=== PATIENT | male | born 1985 | race African-American/Black ===

== ENCOUNTER 2023-05-18 09:41 | Outpatient (CLI) | payer OTHER ==
--- NOTE | 2023-05-18 10:16 | Sleep Patient Instructions ---
Sleep Center Visit Summary - Patient Visit Information Reason for Visit: Initial consult for evaluation of sleep disordered breathing and other sleep issues. - Patient Instructions Instructions Attached: Sleep Study Home Monitor Additional Instructions: You will be completing a sleep study, either an in-lab polysomnography (PSG) or home sleep study (HST). You will follow-up in the sleep care office after the sleep study is completed to hear the results and talk about therapy, if needed. You will be called by our office staff to schedule this appointment, but you may contact us with any questions. - Clinic Information Contact: [facility] [address] [place] [address] [email or web address] T: [phone]
--- NOTE | 2023-05-18 10:22 | SLEEP CARE CONSULTATION ---
Information from patient questionnaire entered by Bianca Santacruz. I have reviewed and concur with the information entered by Bianca Santacruz. This document represents the service I personally performed and the decisions made by me, Alma Ortega ARNP. History of Present Illness Service Date and Time: 05/18/2023 0941 Reason for Visit: New patient Chief Complaint: reports: Snoring, Observed pauses in breathing, Fatigue, Frequent awakenings at night Date of Onset: FOR YRS Usual bedtime: 2129 -june not fall asleep until midnight Time it takes to fall asleep: 60MINS+ Snores at night: Yes Observed to quit breathing while asleep: Yes Sleeps alone due to snoring: No Number of times waking at night: 3-4 Reasons for waking at night: reports: Choking, Snoring, Bathroom, Other (COUGHING (feels like "something is stuck in throat" and is very dry)). denies: Gasping for air Toss, Turn, or Twitch while sleeping: Yes Recalls having dreams: No Usually gets out of bed at: 0530 Feels refreshed in the morning: No Morning headache: Yes (5 days a week; can subside in about an hour but sometimes later in day) Sleepy or fatigued during the day: Yes (few unintentional naps for about 20 mins, watching TV) Ever fallen asleep while driving: No Takes day naps: No Dreams during day naps: No Prior sleep studies: No Additional HPI information: I had the pleasure of seeing DREW MCKEE today regarding the possibility of him having a sleep disorder. His current complaints are fatigue, frequent night awakenings, observed pauses in breathing and snoring. He says his tells him that he snores loudly and will stop breathing during the night. He says that he wakes up a lot during the night and only feels he gets 4-5 hours of sleep. He says he normally wakes up feeling refreshed. He says he does not drink any caffeine. He says it can be hard to fall asleep sometimes. He can take 1-2 hours to fall asleep and then he will wake up 3-4 times during the night. He struggles to fall back to sleep sometimes because he wakes up feeling "wired" and has to force himself to go back to sleep. He does not take naps during that day. - Parasomnia Symptoms Ever been unable to move upon waking from sleep: Yes (happened a lot when young but now once every few months) Walks in sleep: No Talks in sleep: Yes Ever acted out dreams in sleep: Yes Ever felt weak in the knees when startled or emotional: No Bothered by creepy, crawly, restless sensations in legs: Yes (if sitting too long; legs feel numb, feet feeling "bouncy") Problems with memory or concentration: Yes (memory for sure; concentration some too) Subjective Initial [place] Sleepiness Scale score: 9 (05/18/23) Past Medical History Past Medical History: reports: Hypertension Social History The patient's occupation is a AM. Patient is and lives in . Have you smoked in the past 12 months: No Cigarettes per day (20/pack): 10 (LESS THAN A PACK) Years of smokin Quit date: 2012 Smoking Pack Years: 1.0 Alcohol use: Yes Alcohol amount and frequency: 1-2 DRINKS 1-2 X A MONTH; socially Caffeine use: Yes Caffeine amount and frequency: VERY SELDOM Family History Family history of sleep disordered breathing: Yes Family Hx Sleep Apnea: Mother: Snoring, Sleep apnea - Untreated, Father: Snoring, Sleep apnea - Untreated Allergies and Home Medications Known drug allergies: Yes ( LISTED) Drug allergies reviewed: Yes Home medication list reviewed: Yes (as listed) Allergy and home medication list: Allergies Penicillins Allergy (Verified 05/18/23 09:46) Home Medications Ibuprofen See Rx Instructions .ROUTE .COMPLEX 05/18/23 [History] amLODIPine [Norvasc] See Rx Instructions .ROUTE .COMPLEX 05/18/23 [History] Review of Systems Weight gain over past 5 years: 10-15 Cardiovascular: reports: high blood pressure, chest pain Respiratory: reports: shortness of breath Gastrointestinal: reports: abdominal pain. denies: heartburn Neurological: reports: headaches Psychiatric: reports: anxiety Ear/Nose/Throat: reports: dry mouth/throat, wisdom teeth removed. denies: tonsillectomy Endocrine: reports: sluggishness Musculoskeletal: reports: joint pain, neck pain, back pain, muscle pain or cramping Physical Exam Vital signs obtained and entered by: BIANCA Jimenez MA Blood Pressure: 154/95 (RIGHT ARM) Cuff size: regular Heart Rate: 70 O2 Saturation: 98 Height: 5 ft 9 in (PER PT) Weight: 225 lb (PER PT) Body Mass Index: 33.2 BMI Classification: Obese Neck circumference: 17.25 Mouth and throat: narrow oropharynx Soft palate: long Hard palate: normal Uvula: normal Uvula visualization: 50% Mallampati Class II Tongue: enlarged in size with teeth ellis on lateral edges Tonsils: 1+ Neck: normal w/o lymphadenopathy or thyromegaly Heart: regular rate and rhythm Lungs: clear bilaterally Impression and Plan 1. Suspected Obstructive Sleep Apnea-Hypopnea Syndrome, as suggested by a history of loud and irregular snoring, observed cessation of breath while asleep, gasping or choking in sleep, morning headache, frequent awakening during the night and cognitive impairment. Narrow oropharynx and obesity are common predisposing factors for obstructive sleep apnea-hypopnea syndrome. I recommend proceeding to polysomnography to confirm the diagnosis and to assess severity. If the patient has significant sleep disordered breathing, a manual CPAP titration study will also be performed to find the optimal treatment pressure. I informed the patient of what the sleep studies involve and after some d iscussion, obtained agreement to proceed. The pathophysiology of obstructive sleep apnea-hypopnea syndrome was discussed with the patient and health risks of cardiovascular and cerebrovascular disease if not treated. Risks of drowsy driving discussed in detail and patient advised to avoid long distance driving and to nail puller at the first sign of drowsiness. Patient agreed to plan. * Schedule polysomnography +- manual CPAP titration study and return in 1-2 weeks after the study to discuss result and initiate therapy. * Avoid long distance driving or driving when feeling sleepy. * Avoid alcohol, sedative and muscle relaxant around bedtime. * Attempt to lose weight. * Review instructions provided by trained office staff on how to prepare for the sleep study. * Return for follow-up after sleep study completed. Counseling Topics: Weight loss health impact Follow up with Sleep Care in: other (for sleep study results) Plan: PSG/HST Visit Type: In Office Time Spent with Patient (minutes): 30 Provider Statement: I spent 100% of the Face to Face Visit with the patient with greater than 50% spent counseling the patient and coordination of care.
[2023-05-18 10:31] VITALS: BP 154/95; O2SAT 98
== END 2023-05-18 09:42 | disposition home or self-care (01) ==
LOC: SC 09:41
PROVIDERS: ATTEND Nurse Practitioner Family
DX: R06.83 Snoring (principal); R06.81 Apnea, not elsewhere classified; R53.83 Other fatigue; G47.8 Other sleep disorders; R51.9 Headache, unspecified; E66.9 Obesity, unspecified; Z68.33 Body mass index [BMI] 33.0-33.9, adult; I10 Essential (primary) hypertension; R41.89 Other symptoms and signs involving cognitive functions and awareness
CPT/HCPCS: 99203; 99212

== ENCOUNTER 2023-05-31 12:46 | Outpatient (CLI) | payer OTHER | END 2023-05-31 12:47 | disposition home or self-care (01) | LOC: SC 12:46 | PROVIDERS: ATTEND Nurse Practitioner Family | DX: G47.33 Obstructive sleep apnea (adult) (pediatric) (principal); R09.02 Hypoxemia | CPT/HCPCS: 95806 ==

== ENCOUNTER 2023-07-06 10:39 | Outpatient (CLI) | payer OTHER ==
--- NOTE | 2023-07-06 11:15 | SLEEP CARE CONSULTATION ---
Information from patient questionnaire entered by Allegra Santacruz. I have reviewed and concur with the information entered by Allegra Santacruz. This document represents the service I personally performed and the decisions made by me, Alma Ortega ARNP. History of Present Illness Service Date and Time: 07/06/2023 1039 Initial [place] Sleepiness Scale score: 9 (05/18/23) Current [place] Sleepiness Scale score: 14 (07/06/23) Additional HPI information: DREW MCKEE returns for follow up and results of the recently performed home sleep study. The sleep study showed mild obstructive sleep apnea with an average AHI of 9.5 and darling oxygen saturation of 81%. I explained the pathophysiology behind obstructive sleep apnea. We then spent quite a bit of time discussing different treatment options. For mild obstructive sleep apnea, surgery and oral appliance are alternatives to nasal CPAP therapy but in moderate or severe cases, nasal CPAP is the most effective and reliable treatment. Because apnea is primarily in supine position, then positional management therapy could be effective. Methods discussed such as positioning with pillows, using a T-shirt with tennis balls in the back or commercial products that have a pillow format on back to prevent supine sleep. I reviewed the impact of weight changes on sleep apnea and strongly recommended losing weight. After some discussion, the patient opted to go with the nasal CPAP therapy. Nasal autoCPAP set at 4-15 cmH20 will be ordered with rationale explained. A manual titration study will be ordered if unable to find optimal pressure with office adjustments. I explained how CPAP machine works and what to expect when using the machine. Using CPAP every night in order to get used to it was emphasized. The patient was instructed to call the CPAP supplier to discuss any mechanical problem that may occur. If the mask given is uncomfortable or is difficult to keep on through the night even with adjustment, contact the CPAP supplier as many will replace with another mask style if notified before 30 days. If snoring or perceives is not getting enough air or too much air from the machine, notify this office. Patient counseled not drink alcohol less than 4 hours before bedtime as it can increase snoring and apnea. Patient was cautioned about risks of drowsy driving until sleepiness symptoms resolve. Patient denies drowsy driving. Sleep Study - Results Type of Sleep Study: Home sleep study (COMPLETED 05/31/23) Prior sleep studies: No Polysomnography/Home Sleep Study results: Physician Impression: The quality of the study is good. The length of the study is adequate (> 240 minutes). Please also see the tabulated and graphic data. 1. Obstructive Sleep Apnea-Hypopnea (ICD-10 G47.33), mild, with an AHI of 9.5/hr and darling SaO2 of 81%. During the study, the patient had 26 apneas (26 obstructive, 0 central, 0 mixed) and 23 hypopneas. The longest episode lasted 59.5 seconds. The respiratory events occurred almost exclusively during supine sleep (supine AHI was 16.6 and non-supine, 4.13). 2. Hypoxemia (ICD-10 R09.02), mild, with the lowest oxygen saturation of 81 % and 3.1 minutes with SaO2 under 90%. Baseline oxygen saturation was normal (Average oxygen saturation was 93%). Allergies and Home Medications Known drug allergies: Yes (as listed) Drug allergies reviewed: Yes Home medication list reviewed: Yes (amlodipine, meloxicam) Allergy and home medication list: Allergies Penicillins Allergy (Verified 05/18/23 09:46) Review of Systems Review of systems same as previous: Yes (NO CHANGE) Physical Exam Vital signs obtained and entered by: ALLEGRA Jimenez MA Blood Pressure: 153/90 (RIGHT ARM) Cuff size: long Heart Rate: 61 O2 Saturation: 98 Height: 5 ft 9 in (PER PT) Weight: 242 lb 6.4 oz Body Mass Index: 35.8 BMI Classification: Obese Impression and Plan 1. Obstructive Sleep Apnea-Hypopnea Syndrome, mild, with lowest oxygen saturation of 81%. Obviously this is the cause of the patients symptoms of unrefreshed sleep, and excessive daytime sleepiness. Positive pressure therapy could benefit hypertension. As mentioned above, the patient will be started on nasal autoCPAP therapy with pressure set at 4-15 cmH2O. A manual titration study will be completed if unable to find optimal treatment pressure with office adjustments. Compliance guidelines also reviewed. A copy of compliance guidelines will be given for reference at check out. Because the apnea is more severe supine, I instructed to avoid sleeping supine using pillow positioning until able to start CPAP use. 2. Hypoxemia, mild, with a darling oxygen saturation of 81% and 3.1 minutes spent under 90%. The baseline oxygen saturation was normal with an average oxygen saturation of 93%. 3. Obesity, unspecified. Currently patients BMI is 35.8. Obesity increases the risk of apnea, CPAP pressure requirements and overall health risks especially cardiovascular and diabetes. Thus patient is advised to lose weight. * Nasal auto CPAP therapy, pressure at 4-15 cm H2O. * Attempt to lose weight. * Avoid alcohol consumption near bedtime. * Avoid supine sleep until using CPAP. * The patient is again cautioned about driving until sleepiness completely resolves. * Return one month after CPAP obtained. I will assess response to therapy and compliance at that time. Counseling Topics: Sleeping position, Weight loss health impact Prescriptions: Auto CPAP Plan: CPAP startup and compliance follow up Visit Type: In Office Time Spent with Patient (minutes): 20 Provider Statement: I spent 100% of the Face to Face Visit with the patient with greater than 50% spent counseling the patient and coordination of care.
--- NOTE | 2023-07-06 11:16 | Sleep Patient Instructions ---
Sleep Center Visit Summary - Patient Visit Information Reason for Visit: Sleep study follow-up - Patient Instructions Instructions Attached: CPAP Additional Instructions: You are being started on CPAP therapy with pressure setting at 4-15 cmH2O. You will need to call the sleep care office to set up your follow up once you have your CPAP machine to check compliance and response to therapy at that time. You may call the office with any concerns about pressure feeling too low or too much for adjustment, if needed. You should contact DME supplier for any questions or concerns about mask or equipment. Please call office to schedule a follow up appointment in the sleep care office one month after obtaining new device. - Clinic Information Contact: [facility] [address] [place] [address] [email or web address] T: [phone]
[2023-07-06 11:24] VITALS: BP 153/90; O2SAT 98
== END 2023-07-06 10:40 | disposition home or self-care (01) ==
LOC: SC 10:39
PROVIDERS: ATTEND Nurse Practitioner Family
DX: G47.33 Obstructive sleep apnea (adult) (pediatric) (principal); R09.02 Hypoxemia; E66.9 Obesity, unspecified; Z68.35 Body mass index [BMI] 35.0-35.9, adult
CPT/HCPCS: 99212; 99213

== ENCOUNTER 2023-10-25 08:07 | Emergency (ER) | payer OTHER ==
[2023-10-25 08:26] LABS: BASOPHILS % (AUTO) 0.8 %; EOSINOPHILS # (AUTO) 0.2 10^3/uL (0.0-0.7); EOSINOPHILS % (AUTO) 2.8 %; HCT - HEMATOCRIT 41.3 % (42.0-52.0); HGB - HEMOGLOBIN 13.2 g/dL (14.0-18.0); LYMPHOCYTES # (AUTO) 1.7 10^3/uL (1.5-3.5); LYMPHOCYTES % (AUTO) 32.6 %; MEAN CORPUSCULAR HEMOGLOBIN 26.6 pg (27.0-31.0); MEAN CORPUSCULAR VOLUME 83.1 fL (80.0-94.0); MEAN PLATELET VOLUME 9.8 fL (7.4-11.4); MONOCYTES # (AUTO) 0.3 10^3/uL (0.0-1.0); MONOCYTES % (AUTO) 5.5 %; NEUTROPHILS # (AUTO) 3.1 10^3/uL (1.5-6.6); NEUTROPHILS % (AUTO) 58.1 %; PLT - PLATELET COUNT 312 10^3/uL (130-450); RED BLOOD COUNT 4.97 10^6/uL (4.70-6.10); WHITE BLOOD COUNT 5.3 x10^3/uL (4.8-10.8)
--- NOTE | 2023-10-25 08:38 | ED Physician Documentation ---
PD HPI CHEST PAIN - Stated complaint Stated Complaint: CHEST PX,TIGHTNESS - Chief complaint Chief Complaint: Cardiac - History obtained from History obtained from: Patient - Additional information Additional information: He developed palpitations like a rapid heart heartbeat last night around 930 with skipped beats and this morning has substernal chest pain radiating to the left upper quadrant. He is not short of breath with it. No pedal edema or calf pain. No personal or family history of heart disease. Does not smoke. PD PAST MEDICAL HISTORY - Past Medical History Cardiovascular: Hypertension - Past Surgical History Past Surgical History: Yes Ortho: Rotator cuff repair - Present Medications Home Medications: Ambulatory Orders Medication Instructions Recorded Confirmed Acetaminophen [Tylenol] 1 tab PO PRN PRN 10/25/23 10/25/23 Ibuprofen [Advil] 1 tab PO PRN PRN 10/25/23 10/25/23 - Allergies Allergies/Adverse Reactions: Allergies Allergy/AdvReac Type Severity Reaction Status Date / Time Penicillins Allergy Hives Verified 10/25/23 08:15 - Social History Does the pt smoke?: No Smoking Status: Never smoker Does the pt drink ETOH?: No Does the pt have substance abuse?: No - Immunizations Immunizations are current?: Yes PD ED PE NORMAL - Vitals Vital signs reviewed: Yes - General General: Alert and oriented X 3, No acute distress - Neck Neck: Supple, no meningeal sign, No bony TTP - Cardiac Cardiac: RRR, No murmur - Respiratory Respiratory: No respiratory distress, Clear bilaterally - Abdomen Abdomen: Non tender - Extremities Extremities: No edema, No calf tenderness / cord - Neuro Neuro: Alert and oriented X 3 Results - Vitals Vitals: Vital Signs - 24 hr 10/25/23 10/25/23 10/25/23 08:12 08:26 08:35 Temperature 36.4 C L 98.1 C H Heart Rate 66 68 Respiratory 20 14 Rate Blood Pressure 154/97 H 151/91 H Blood Pressure 122/95 H [Left] Blood Pressure 139/95 H [Right] O2 Saturation 97 97 Oxygen O2 Source Room air - EKG (time done) 0812 EKG releavant findings:: EKG personally interpreted by author of this note. Relevant findings are: Rate: Rate (enter#) (62) Rhythm: NSR [place]: Normal Intervals: Normal NE QRS: Normal Ischemia: Normal ST segments - Labs Labs: Laboratory Tests 10/25/23 10/25/23 08:21 08:21 WBC 5.3 RBC 4.97 Hgb 13.2 L Hct 41.3 L MCV 83.1 MCH 26.6 L MCHC 32.0 RDW 13.0 Plt Count 312 MPV 9.8 Neut # (Auto) 3.1 Lymph # (Auto) 1.7 [place] # (Auto) 0.3 Eos # (Auto) 0.2 Baso # (Auto) 0.0 Absolute Nucleated RBC 0.00 Nucleated RBC % 0.0 Sodium 137 Potassium 4.0 Chloride 104 Carbon Dioxide 27 Anion Gap 6.0 BUN 11 Creatinine 1.0 Estimated GFR (MDRD) 102 Glucose 126 H Calcium 9.3 Total Bilirubin 0.5 AST 17 ALT 19 Alkaline Phosphatase 42 Troponin I High Sens 6.6 Total Protein 7.2 Albumin 4.6 Globulin 2.6 Albumin/Globulin Ratio 1.8 Lipase < 10 L - Rads (name of study) Single view chest x-ray is normal Relevant Findings:: Final report received, EMP independent interpretation of test PD Medical Decision Making - ED course ED course: Heart score 0, PERC negative. Nothing in the history or physical to suggest dissection. Troponin/CBC, CMP were all normal/negative. Mild hyperglycemia discussed with patient. Departure - Departure Disposition: 01 Home, Self Care Clinical Impression: Palpitations, Atypical chest pain Condition: Good Record reviewed to determine appropriate education?: Yes Instructions: ED Chest Pain Atypical Unkn Cause Comments: Testing including EKG and troponin and chest x-ray were all negative/normal. Given your symptomatology though, recommend you follow-up with your flight surgeon for consideration of prolonged cardiac monitoring. Return for new or worsening symptoms. Forms: PCP List
[2023-10-25 08:46] LABS: ALBUMIN 4.6 g/dL (3.2-5.5); ALBUMIN/GLOBULIN RATIO 1.8 (1.0-2.2); ALKALINE PHOSPHATASE 42 IU/L (42-121); ALT ALANINE AMINOTRANSFERASE 19 IU/L (10-60); AST ASPARTATE AMINOTRANSFERASE 17 IU/L (10-42); BILIRUBIN,TOTAL 0.5 mg/dL (0.2-1.0); BUN - BLOOD UREA NITROGEN 11 mg/dL (6-20); CALCIUM 9.3 mg/dL (8.5-10.3); CARBON DIOXIDE - CO2 27 mmol/L (21-32); CHLORIDE 104 mmol/L (101-111); GFR - MDRD 102 (>89); GLUCOSE 126 mg/dL (74-104); SODIUM 137 mmol/L (135-145); TOTAL PROTEIN 7.2 g/dL (6.4-8.9)
[2023-10-25 08:47] LABS: LIPASE < 10 U/L (11-82)
[2023-10-25 08:48] LABS: TROPONIN I HIGH SENSITIVITY 6.6 ng/L (2.3-19.7)
--- NOTE | 2023-10-25 08:52 | XRAY Report ---
PROCEDURE: Chest 1V INDICATIONS: Chest Pain TECHNIQUE: One view of the chest was acquired. COMPARISON: None. FINDINGS: Surgical changes and devices: None. Lungs and pleura: No pleural effusions or pneumothorax. Lungs are clear. Mediastinum: Mediastinal contours appear normal. Heart size is normal. Bones and chest wall: No suspicious bony lesions. Overlying soft tissues appear unremarkable. IMPRESSION: No acute cardiopulmonary process. Reviewed by: Tj Baez MD on 10/25/2023 8:51 AM PDT Approved by: Tj Baez MD on 10/25/2023 8:51 AM PDT Station ID: [id number]
[2023-10-25 09:14] VITALS: BP 128/82; O2SAT 100
== END 2023-10-25 09:11 | disposition home or self-care (01) ==
LOC: ED 08:07
DX: R00.2 Palpitations (principal); R07.89 Other chest pain; R73.9 Hyperglycemia, unspecified
CPT/HCPCS: 36415; 80053; 83690; 84484; 85025; 93005; 99283; 99284